=== PATIENT | female | born 1990 | race Caucasian/White ===

== ENCOUNTER 2024-06-27 13:16 | Emergency (ER) | payer MEDICAID, OTHER ==
[~2024-06-27] VITALS: Ht 162.6 cm; Wt 66.0 kg
[2024-06-27 13:22] VITALS: O2SAT 100
[2024-06-27 13:48] VITALS: BP 120/70; RESP 16; TEMP 36.8; O2SAT 100
[2024-06-27 14:13] LABS: BASOPHILS % 0.6 % (0.0-2.0); DIFFERENTIAL COMMENT 0; EOSINOPHILS % 2.2 % (0.0-5.0); HEMATOCRIT. 36.1 % (36.0-48.0); HEMOGLOBIN. 11.5 g/dL (12.0-16.0); LYMPHOCYTES % 54.4 % (20.0-50.0); MEAN CORPUSCULAR HEMOGLOBIN 23.8 pg (28.0-32.0); MEAN CORPUSCULAR HGB CONC 31.8 g/dL (31.0-37.0); MEAN CORPUSCULAR VOLUME 74.7 fL (81.0-99.0); MEAN PLATELET VOLUME 9.7 fl (7.4-10.4); MONOCYTES % 10.7 % (2.0-8.0); NEUTROPHILS % 32.1 % (40.0-76.0); PLATELET 243 x1000/uL (130-400); RED BLOOD CELL COUNT 4.82 mill/uL (4.2-5.4); RED CELL DISTRIBUTION WIDTH 15.3 % (11.6-14.6); WHITE BLOOD COUNT 5.2 x1000/uL (4.5-11.0)
[2024-06-27 14:19] LABS: CHLORIDE 107 mEq/L (98-107); POTASSIUM 3.9 mEq/L (3.5-5.1); SODIUM 140 mEq/L (136-145)
[2024-06-27 14:20] LABS: CARBON DIOXIDE 24 mEq/L (21-32)
[2024-06-27 14:21] LABS: CALCIUM 9.5 mg/dL (8.7-10.4)
[2024-06-27 14:25] LABS: CREATININE 0.4 mg/dL (0.6-1.0); GLUCOSE 93 mg/dL (70-105)
[2024-06-27 14:26] LABS: UREA NITROGEN BLOOD 15 mg/dL (9-23)
[2024-06-27 15:32] VITALS: PULSE 94
[2024-06-27] MEDS: PROPRANOLOL HCL 10MG TABLET PO ONE (15:32)
[2024-06-27 15:46] LABS: HCG SCREEN NEGATIVE
== END 2024-06-27 15:36 | disposition home or self-care (01) ==
LOC: ER 13:16
DX: E03.9 Hypothyroidism, unspecified (principal); R00.0 Tachycardia, unspecified; Z98.890 Other specified postprocedural states
CPT/HCPCS: 36415; 80048; 84443; 84703; 85025; 93005; 99284